=== PATIENT | male | born 2000 | race Caucasian/White ===

== ENCOUNTER 2021-02-08 21:18 | Emergency (ER) | payer SELFPAY ==
--- NOTE | 2021-02-08 21:20 | XRR_ITS ---
PROCEDURE INFORMATION: Exam: XR Left Elbow Exam date and time: 02/08/2021 9:20 PM Age: 20 years old Clinical indication: Injury or trauma; Fall; Work related; Blunt trauma (contusions or hematomas) and laceration; Injury details: PT fell at work while holding glass plates. The plates shattered and cut left elbow. TECHNIQUE: Imaging protocol: XR Left elbow. Views: 3 or more views. COMPARISON: No relevant prior studies available. FINDINGS: Bones/joints: A laceration seen on the posterior aspect of the left elbow. Soft tissues: Normal. XR/XR elbow LT min 3V* [id number] IMPRESSION: 1. There are no acute osseous findings. 2. Laceration seen in the posterior aspect of the left elbow without evidence for residual foreign body.
[2021-02-08 22:28] VITALS: BP 129/77; PULSE 76; RESP 18; TEMP 36.7; O2SAT 95; BMI 29.7
--- NOTE | 2021-02-09 02:39 | W.ED.UPPEXIN ---
HPI - Extremity Injury (Upper) General: Chief Complaint: Wound/Laceration Stated Complaint: fall- left elbow injury Time Seen by Provider: 02/09/21 02:38 Source: patient Mode of arrival: ambulatory Limitations: no limitations History of Present Illness: HPI narrative: Patient is a 20-year-old male who presents to ED today for evaluation of a left elbow injury that he sustained while at work when he accidentally slipped and fell and struck his elbow on some ceramic plates which then broke causing him to sustain a laceration to the elbow. No other injury sustained during the fall. Tetanus is UTD. complaint: injury to: left and elbow Onset (ago): hour(s) Other Extremity Injury: Left: elbow Other injuries: none Place: work Severity: mild Relieving factors: none Exacerbating factors: movement of extremity Context: fall Associated symptoms: Reports no associated symptoms Review of Systems Musc: Reports: joint pain (L elbow ) Skin/Breast: Reports: other (elbow laceration) Neuro: Denies: numbness in extremities or sensory changes Physical Exam Const: COMMON NORMALS: no acute distress, patient oriented x3, no limitations and alert Extremity: COMMON NORMALS: full ROM GENERAL: Yes normal exam except as noted LEFT UPPER EXTREMITY: Yes elbow joint Left elbow: Yes inspection (1cm laceration), Yes ROM (normal) and Yes neurovascular exam (normal) Neuro: COMMON NORMALS: patient oriented x3, moves all extremities, no focal motor deficits and no sensory deficits noted SENSORIUM/ORIENTATION: Yes alert Skin: NARRATIVE SKIN EXAM: laceration L elbow; otherwise normal skin exam Procedures Laceration Laceration 1: Site: upper extremity Side (If applicable): left Size (cm): 1.25 Description: linear Depth: simple, single layer Local Anesthetic: lidocaine 1% and with epi Amount of anesthesia used (mL): 2.0 Pre-repair: wound explored and irrigated extensively Skin layer closed with: nylon Size (cm): 5-0 Number of sutures: 3 Technique: simple, interrupted Course Vital Signs: Vital signs: Vital Signs Temperature 98.1 F 02/08/21 22:28 Pulse Rate 76 02/08/21 22:28 Respiratory Rate 18 02/08/21 22:28 Blood Pressure 129/77 02/08/21 22:28 Pulse Oximetry 95 02/08/21 22:28 MDM - Extremity Injury (Upper) Imaging Data^: XR L elbow: Radiologist's impression: [address] [place] [address] XRay Report Signed Patient: Adrián Lopez Jr Unit #: [id number] : 2000 Age/Sex: 20 / M ADM Date: 02/08/21 Loc: ER Room/Bed: Attending Dr: Ordering Provider/Ordering MD: Michelle Caballero Date of Service: 02/08/21 Procedure(s): XR elbow LT min 3V* [id number] Accession Number(s): [id number] Report Number: [id number] PROCEDURE INFORMATION: Exam: XR Left Elbow Exam date and time: 02/08/2021 9:20 PM Age: 20 years old Clinical indication: Injury or trauma; Fall; Work related; Blunt trauma (contusions or hematomas) and laceration; Injury details: PT fell at work while holding glass plates. The plates shattered and cut left elbow. TECHNIQUE: Imaging protocol: XR Left elbow. Views: 3 or more views. COMPARISON: No relevant prior studies available. FINDINGS: Bones/joints: A laceration seen on the posterior aspect of the left elbow. Soft tissues: Normal. XR/XR elbow LT min 3V* [id number] IMPRESSION: 1. There are no acute osseous findings. 2. Laceration seen in the posterior aspect of the left elbow without evidence for residual foreign body. Dictated By: Willem Smith MD Signed By: Willem Smith MD Signed Date/Time: 02/08/212222 DD/ 20 Discharge Plan Discharge Patient Disposition: Home Clinical Impression: Laceration of elbow, left Qualifiers: Encounter type: initial encounter Qualified Code(s): S51.012A - Laceration without foreign body of left elbow, initial encounter Condition: Stable Discharge Orders: Discharge ED (Routine); Ordered 02/09/21 Ordered By: Michelle Caballero Patient Instructions: Suture Care (ED), Laceration (ED) Activity Restrictions/Additional Instructions: Keep wound/laceration clean with warm soap and water twice daily. Monitor for signs of infection such as redness, swelling, increased pain, or drainage. Please seek medical re-evaluation if these occur. If you received sutures today these will need to be removed (unless you were told by the provider that they are absorbable). The provider should have discussed with you the length of time until removal-7 DAYS. You may return to the emergency department for this service. If your wound was closed with Steri-Strips or glue/adhesive these will fall off within the next week or so. Coding Level of Care Code ED [employer] for Conrado Farnsworth
[2021-02-09 02:59] VITALS: PULSE 65; RESP 16; O2SAT 99
[2021-02-09 03:02] VITALS: PULSE 65; RESP 16; TEMP 36.7; O2SAT 99
== END 2021-02-09 03:03 | disposition home or self-care (01) ==
PROVIDERS: Emergency Provider Physician Assistant
DX: S51.012A Laceration without foreign body of left elbow, initial encounter (principal); W01.118A Fall on same level from slipping, tripping and stumbling with subsequent striking against other sharp object, initial encounter
CPT/HCPCS: 12001; 73080; 99282